=== PATIENT | female | born 2000 | race Asian ===

== ENCOUNTER 2025-03-02 13:24 | Emergency (ER) | payer OTHER ==
[~2025-03-02] VITALS: Ht 162.6 cm; Wt 69.0 kg
[2025-03-02] MEDS ORDERED: CIPOTIC OTIC (13:41)
[2025-03-02] MEDS ORDERED: IBUP-2077 PO (13:41)
--- NOTE | 2025-03-02 13:42 | ERN ---
ED Note History of Present Illness Stated Complaint: BILATERAL EAR PAIN Chief Complaint: Earache Time Seen by MD: 13:29 Dictation: PATIENT IS A 24-YEAR-OLD FEMALE HERE WITH COMPLAINTS OF BILATERAL EAR PAIN, STATES SHE USES Q-TIPS. SHE STATES THE PAIN HAS BEEN FOR ONE WEEK DENIES ANY HEARING LOSS NO FEVER NO CHILLS NO NAUSEA VOMITING. SHE HAS NO MASTOID TENDERNESS IN TRIAGE. NO PRIMARY CARE DOCTOR. Allergies: Coded Allergies: No Known Allergies (Unverified Allergy, Unknown, 03/02/25) Past Medical History Past Medical History: No Pertinent History Surgical History: None History: Not Applicable LMP: Feb 03, 2025 RN Note Reviewed/Agreed w/PFSH: Yes Review of System Dictation CONSTITUTIONAL: NEGATIVE EXCEPT FOR HPI HEAD/FACE: NEGATIVE EXCEPT FOR HPI EENT: NEGATIVE EXCEPT FOR HPI BILATERAL EAR PAIN RESPIRATORY: NEGATIVE EXCEPT FOR HPI GASTROINTESTINAL/ABDOMINAL: NEGATIVE EXCEPT FOR HPI GENITOURINARY: NEGATIVE EXCEPT FOR HPI MUSCULOSKELETAL: NEGATIVE EXCEPT FOR HPI INTEGUMENTARY: NEGATIVE EXCEPT FOR HPI NEUROLOGICAL/PSYCH: NEGATIVE EXCEPT FOR HPI HEMATOLOGIC/LYMPHATIC: NEGATIVE EXCEPT FOR HPI ALL SYSTEMS NEGATIVE, EXCEPT NOTED ABOVE. 13 POINT REVIEW OF SYSTEMS ASSESSED AND ALL NEGATIVE EXCEPT FOR ABOVE. Initial Vital Sign VS Vital Signs Date Time Temp Pulse Resp B/P (MAP) Pulse Ox O2 Delivery O2 Flow Rate FiO2 03/02/25 13:25 97.9 58 16 109/73 100 Room Air 0 Physical Exam Dictation VITAL SIGNS REVIEWED GENERAL APPEARANCE: ALERT, ORIENTED X 3, N MODERATE ACUTE DISTRESS, WELL DEVELOPED, NOURISHED. HEAD AND FACE: NON-TRAUMATIC. EYES: PERRL, PINK CONJUNCTIVAS, EYELID NO TRAUMA, ANTERIOR CHAMBER WITH ARCUS SENILIS. EARS: PINNAS INTACT AND NO SIGNS OF TRAUMA. BILATERAL TMS INTACT. OTIC ERYTHEMA AND SWELLING BILATERALLY GREATER ON THE LEFT. NEGATIVE MASTOID TENDERNESS BILATERALLY NOSE: NO DISCHARGE, NO BLEEDING. OROPHARYNX: MOUTH NORMAL, TONGUE PINK, PHARYNX CLEAR,NO ERYTHEMA, TONSILS NO EXUDATES, NO ABSCESSES NOTED, MUCOUS MEMBRANE MOIST NECK: SUPPLE, NON-TENDER, NO THYROMEGALY, NO MASSES, NO JVD, NO BRUITS BREAST:DEFERRED CHEST:NO TENDERNESS, NO CREPITUS, NO PARADOXICAL MOVEMENT, NO RETRACTIONS LUNGS:CLEAR, WELL-VENTILATED, SYMMETRIC, NO RALES, NO WHEEZING, NO RHONCHI, NO STRIDOR, GOOD BREATH SOUNDS BILATERALLY HEART: REGULAR RATE, REGULAR RHYTHM, NO MURMUR, NO GALLOPS VASCULAR: NO PERIPHERAL EDEMA, ABDOMEN: SOFT, POSITIVE BOWEL SOUNDS, NONDISTENDED, NO GUARDING, NONTENDER, NO REBOUND, NO MASSES NO HEPATOMEGALY, NO SPLENOMEGALY, NO YARBROUGH'S SIGN, NO HERNIAS. RECTAL: DEFERRED GENITAL: DEFERRED NEUROLOGICAL: NORMAL SPEECH, MOTOR FUNCTION INTACT, SENSORY FUNCTION INTACT MUSCULOSKELETAL: NECK NONTENDER, FULL RANGE OF MOTION, BACK NONTENDER, FULL RANGE OF MOTION, EXTREMITIES: NONTENDER, FULL RANGE OF MOTION SKIN: COLOR PINK, DRY, NO TURGOR, NO RASH, NO LACERATIONS, NO ABRASIONS, NO CONTUSIONS. LYMPHATIC: DEFERRED Results (Laboratory/Radiology) Labs Reviewed?: Yes ED Course ED Course Orders Procedure Category Date Status Time Ibuprofen 800 Mg Tab PHA 03/02/25 Logged (Motrin) 14:00 Current Medications Medications (Trade) Dose Ordered Sig/Claribel Route PRN Reason Start Time Stop Time Status Last Admin Dose Admin Ibuprofen (moTRIN) 800 mg ONCE ONCE PO 03/02/25 14:00 03/02/25 14:01 UNV Vital Signs Date Time Temp Pulse Resp B/P (MAP) Pulse Ox O2 Delivery O2 Flow Rate FiO2 03/02/25 13:25 97.9 58 16 109/73 100 Room Air 0 1335/NO LABS OR IMAGING INDICATED. PATIENT WILL BE TREATED EMPIRICALLY FOR OTITIS EXTERNA SHE WILL BE PRESCRIBED IBUPROFEN AND CIPRO HC TOLD USE COTTON BALLS WITH EAR DROPS Medical Decision Making MDM MEDICAL DECISION-MAKING HIS BASED ON EMPIRIC TREATMENT FOR BILATERAL OTITIS EXTERNA. IN ADDITION PATIENT WAS EDUCATED ON STOPPING Q-TIP USE IN HER EARS SHE WILL BE PRESCRIBED IBUPROFEN AND CIPRO HC GIVEN INSTILLATION INSTRUCTIONS AND A LIST OF LOCAL DOCTORS. ALL QUESTIONS ANSWERED DX & DISP Disposition: Discharge Departure Impression: Primary Impression: Diffuse otitis externa, bilateral Condition: Stable Scripts Ibuprofen (Ibuprofen 800 mg Tab) 800 Mg Tab 800 MG PO Q8H PRN for fever or pain, #30 TAB 0 Refills Prov: APRIL SOLER NP 03/02/25 Ciprofloxacin HCl/Hc (Cipro Hc Otic Susp) 0.2 %-1 % Otsus 4 DROP OTIC BID for 7 Days, #10 ML 0 Refills FOUR DROPS EACH EAR TWICE A DAY FOR SEVEN DAYS WITH COTTON. Prov: APRIL SOLER NP 03/02/25 Additional Instructions: FOLLOW-UP WITH PRIMARY CARE PROVIDER IN 1 TO 2 DAYS. TAKE MEDICATIONS DIRECTED HERE IN THE EMERGENCY ROOM. OKAY TO CONTINUE HOME MEDICATIONS UNLESS OTHERWISE DISCUSSED DURING YOUR VISIT IN THE EMERGENCY ROOM TODAY. RETURN TO YOUR NEAREST EMERGENCY ROOM IF SYMPTOMS WORSEN OR IF THERE IS NO IMPROVEMENT. CALL 911 IF YOU NEED IMMEDIATE ASSISTANCE. TAKE TYLENOL OR MOTRIN [id number] NEEDED AND IF NO CONTRAINDICATIONS ARE PRESENT. INCREASE ORAL HYDRATION. A WOUND CULTURE OR URINE CULTURE WAS ORDERED HERE IN THE EMERGENCY ROOM DEPARTMENT PLEASE FOLLOW-UP WITH PRIMARY CARE PROVIDER AND ADVISE THEM TO GET REPEAT PORTS FROM OUR FACILITY. IF YOU HAD ANY LAURA WRAP/SPLINTS THAT WERE APPLIED HERE, PLEASE DO NOT REMOVE THEM UNTIL YOU SEE YOUR PRIMARY CARE OR SPECIALTY. STOP Q-TIPS IN EARS. USE EAR DROPS DIRECTED TWICE A DAY FOR SEVEN DAYS WITH COTTON. TAKE IBUPROFEN NEEDED FOR FEVER PAIN WITH FOOD. SEE YOUR PRIMARY CARE DOCTOR FOR FOLLOW UP Time of Disposition: 13:40 I have reviewed the case, and I agree with, Diagnosis and Plan APRIL SOLER NP Mar 02, 2025 13:42
[2025-03-02 13:52] VITALS: BP 110/72; PULSE 68; RESP 16; TEMP 97.9; O2SAT 100
== END 2025-03-02 13:56 | disposition home or self-care (01) ==
LOC: EDH 13:24
DX: H60.313 Diffuse otitis externa, bilateral (principal)
CPT/HCPCS: 99283

== ENCOUNTER → 2025-04-20 | Outpatient (CLI) | payer OTHER ==
[~2025-04-20] MED LIST: CIPOTIC OTIC; IBUP-2077 PO
--- NOTE | 2025-04-20 16:06 | HMCIMG ---
EXAM: CR left ankle, 3 View. CLINICAL HISTORY: PAIN IN LEFT ANKLE AND JOINTS OF LEFT FOOT COMPARISON: None provided. FINDINGS: BONES: No acute fracture or aggressive appearing osseous lesion. JOINTS: The joint spaces appear within normal limits. No dislocation. No radiographic evidence of a joint effusion. SOFT TISSUES: The soft tissues are unremarkable. IMPRESSION: No acute osseous abnormality. /[place]
== END | disposition home or self-care (01) ==
LOC: RAH 15:32
PROVIDERS: ATTEND Internal Medicine
DX: M25.572 Pain in left ankle and joints of left foot (principal)
CPT/HCPCS: 73610

== ENCOUNTER → 2025-04-21 | Outpatient (CLI) | payer OTHER ==
[2025-04-21 09:27] LABS: IMMATURE GRANULOCYTE ABSOLUTE 0.01 K/uL (0-1); NUCLEATED RED BLOOD CELLS 0.0 % (0.0-0.19); PLATELET COUNT (AUTO) 255 K/uL (130-400); RED BLOOD CELL COUNT(AUTO) 5.03 MIL/uL (4.00-5.50); RED CELL DISTRIBUTION WIDTH 16.9 % (11.0-15.5); WHITE BLOOD COUNT (AUTO) 5.1 K/uL (4.8-10.8)
[2025-04-21 09:51] LABS: ASPARTATE AMINOTRANSFERASE 14.0 U/L (10-37); CREATININE 0.7 mg/dL (0.5-1.0); GLOMERULAR FILTR. RATE CALC 123.0 mL/min (>90); GLUCOSE,RANDOM 90.0 mg/dL (70-105); LDL DIRECT 118.0 mg/dL (0-99); SODIUM SERUM 140.0 mmol/L (136-145); TOTAL PROTEIN, SERUM 7.5 g/dL (6.0-8.3); UREA NITROGEN, BLOOD 8.0 mg/dL (7-18)
== END | disposition home or self-care (01) ==
LOC: LAB 08:50
PROVIDERS: ATTEND Internal Medicine
DX: M25.572 Pain in left ankle and joints of left foot (principal); Z13.1 Encounter for screening for diabetes mellitus; Z13.29 Encounter for screening for other suspected endocrine disorder; Z13.220 Encounter for screening for lipoid disorders
CPT/HCPCS: 36415; 80053; 80061; 83036; 84443; 85025

== ENCOUNTER → 2025-04-24 | Emergency (ER) | payer OTHER ==
[~2025-04-24] VITALS: Ht 162.6 cm; Wt 72.6 kg
[~2025-04-24] MED LIST changes: +ACET-2079 PO; +LEVO-70 PO
--- NOTE | 2025-04-24 13:43 | ERN ---
ED Note History of Present Illness Stated Complaint: EARACHE Chief Complaint: Earache Time Seen by MD: 13:16 Dictation: PATIENT IS A 24-YEAR-OLD FEMALE HERE WITH LEFT EAR PAIN FOR MORE THAN A MONTH. SHE HAS HAD NO FEVER NO CHILLS NO NAUSEA VOMITING THERE WAS NO PAIN BEHIND THE EAR BILATERALLY. SHE WAS SEEN AT THE EMERGENCY ROOM ON THE OF THIS MONTH WAS PRESCRIBED CIPRO HC HOWEVER SHE SAID HER INSURANCE DID NOT ACCEPT THAT AND THEY GAVE HER OFLOXACIN I INSTEAD. SHE SAID THESE DID NOT HELP, SHE THEN WENT TO URGENT CARE AND WAS SEEN AND DIAGNOSED WITH A OTITIS EXTERNA WAS PRESCRIBED AUGMENTIN 875 B.I.D. AND TOLD TO CONTINUE OFLOXACIN. SHE STATES SHE ONLY TOOK THE AUGMENTIN ONE TIME A DAY INSTEAD OF TWICE A DAY. SHE STATES SHE SAW HER PRIMARY CARE DOCTORS [place] TWO DAYS AGO WHO ADVISED HER HE WOULD SEND HER TO AN ENT. HOWEVER SHE HAS BEEN IN THE REFERRAL. STATES HER PAIN IS 8/10. NO HEARING LOSS Allergies: Coded Allergies: No Known Allergies (Unverified Allergy, Unknown, 03/02/25) Home Meds Active Scripts Ibuprofen (Ibuprofen 800 mg Tab) 800 Mg Tab, 800 MG PO Q8H PRN for fever or pa in, #30 TAB 0 Refills Prov:APRIL SOLER DATA OFFICER 03/02/25 Ciprofloxacin HCl/Hc (Cipro Hc Otic Susp) 0.2 %-1 % Otsus, 4 DROP OTIC BID for 7 Days, #10 ML 0 Refills FOUR DROPS EACH EAR TWICE A DAY FOR SEVEN DAYS WITH COTTON. Prov:APRIL SOLER DATA OFFICER 03/02/25 Past Medical History Past Medical History: No Pertinent History Surgical History: None History: Not Applicable RN Note Reviewed/Agreed w/PFSH: Yes Review of System Dictation CONSTITUTIONAL: NEGATIVE EXCEPT FOR HPI HEAD/FACE: NEGATIVE EXCEPT FOR HPI EENT: NEGATIVE EXCEPT FOR HPI LEFT EAR PAIN RESPIRATORY: NEGATIVE EXCEPT FOR HPI GASTROINTESTINAL/ABDOMINAL: NEGATIVE EXCEPT FOR HPI GENITOURINARY: NEGATIVE EXCEPT FOR HPI MUSCULOSKELETAL: NEGATIVE EXCEPT FOR HPI INTEGUMENTARY: NEGATIVE EXCEPT FOR HPI NEUROLOGICAL/PSYCH: NEGATIVE EXCEPT FOR HPI HEMATOLOGIC/LYMPHATIC: NEGATIVE EXCEPT FOR HPI ALL SYSTEMS NEGATIVE, EXCEPT NOTED ABOVE. 13 POINT REVIEW OF SYSTEMS ASSESSED AND ALL NEGATIVE EXCEPT FOR ABOVE. Initial Vital Sign VS Vital Signs Date Time Temp Pulse Resp B/P (MAP) Pulse Ox O2 Delivery O2 Flow Rate FiO2 04/24/25 13:16 97.9 61 20 97/63 100 Room Air 0 Physical Exam Dictation VITAL SIGNS REVIEWED GENERAL APPEARANCE: ALERT, ORIENTED X 3, MODERATE ACUTE DISTRESS, WELL DEVELOPED, NOURISHED. HEAD AND FACE: NON-TRAUMATIC. EYES: PERRL, PINK CONJUNCTIVAS, EYELID NO TRAUMA, ANTERIOR CHAMBER WITH ARCUS SENILIS. EARS: PINNAS INTACT AND NO SIGNS OF TRAUMA UNABLE TO VISUALIZE LEFT TM DUE TO OTIC CANAL SWELLING ERYTHEMA. RIGHT TM INTACT AND CANAL NEGATIVE NEGATIVE MASTOID TENDERNESS BILATERALLY NOSE: NO DISCHARGE, NO BLEEDING. OROPHARYNX: MOUTH NORMAL, TONGUE PINK, PHARYNX CLEAR,NO ERYTHEMA, TONSILS NO EXUDATES, NO ABSCESSES NOTED, MUCOUS MEMBRANE MOIST NECK: SUPPLE, NON-TENDER, NO THYROMEGALY, NO MASSES, NO JVD, NO BRUITS BREAST:DEFERRED CHEST:NO TENDERNESS, NO CREPITUS, NO PARADOXICAL MOVEMENT, NO RETRACTIONS LUNGS:CLEAR, WELL-VENTILATED, SYMMETRIC, NO RALES, NO WHEEZING, NO RHONCHI, NO STRIDOR, GOOD BREATH SOUNDS BILATERALLY HEART: REGULAR RATE, REGULAR RHYTHM, NO MURMUR, NO GALLOPS VASCULAR: NO PERIPHERAL EDEMA, ABDOMEN: SOFT, POSITIVE BOWEL SOUNDS, NONDISTENDED, NO GUARDING, NONTENDER, NO REBOUND, NO MASSES NO HEPATOMEGALY, NO SPLENOMEGALY, NO YARBROUGH'S SIGN, NO HERNIAS. RECTAL: DEFERRED GENITAL: DEFERRED NEUROLOGICAL: NORMAL SPEECH, MOTOR FUNCTION INTACT, SENSORY FUNCTION INTACT MUSCULOSKELETAL: NECK NONTENDER, FULL RANGE OF MOTION, BACK NONTENDER, FULL RANGE OF MOTION, EXTREMITIES: NONTENDER, FULL RANGE OF MOTION SKIN: COLOR PINK, DRY, NO TURGOR, NO RASH, NO LACERATIONS, NO ABRASIONS, NO CONTUSIONS. LYMPHATIC: DEFERRED Results (Laboratory/Radiology) Labs Reviewed?: Yes ED Course ED Course Orders Procedure Category Date Status Time Acetaminophen 500mg PHA 04/24/25 Verified Tab (Tylenol 500mg T 14:00 Ceftriaxone 1g Vial PHA 04/24/25 Verified (Rocephine 1g Inj) 14:00 Levofloxacin 500mg PHA 04/24/25 Verified Tab (Levaquin 500mg T 13:31 Vital Signs Date Time Temp Pulse Resp B/P (MAP) Pulse Ox O2 Delivery O2 Flow Rate FiO2 04/24/25 13:16 97.9 61 20 97/63 100 Room Air 0 1335/NO LABS OR IMAGING INDICATED. PATIENT WILL BE GIVEN LEVAQUIN AND ROCEPHIN TO COVER PSEUDOMONAS. SHE WILL BE GIVEN TYLENOL ONLY FOR PAIN SINCE SHE IS GOING BACK TO WORK. SHE WILL BE STRONGLY ADVISED TO RESUME OFLOXACIN DROPS WITH COTTON. AND USE 3 TIMES A DAY FOR SEVEN DAYS. TAKE LEVAQUIN DIRECTED UNTIL GONE AND TYLENOL WITH CODEINE FOR SEVERE PAIN. KEEP HER APPOINTMENT WITH HER ENT Medical Decision Making MDM MEDICAL DECISION-MAKING BASED ON EMPIRIC TREATMENT FOR OTITIS EXTERNA. PATIENT HAD OUTPATIENT TREATMENT FAILURE PARTIALLY DUE TO AN INCOMPLETE TREATMENT AND FAILURE TO TAKE ANTIBIOTICS DIRECTED. PATIENT WILL BE SWITCHED OVER TO LEVAQUIN 500 MG DAILY FOR SEVEN DAYS GIVEN TYLENOL WITH CODEINE FOR SEVERE PAIN TOLD TO RESUME OFLOXACIN DROPS 3 TIMES A DAY FOR SEVEN DAYS WITH COTTON. KEEP HER APPOINTMENT WITH HER ENT DX & DISP Disposition: Discharge Departure Impression: Primary Impression: Left otitis externa Additional Impression: Failure of outpatient treatment Condition: Stable Scripts Acetaminophen with Codeine (Acetaminophen-Cod #3 Tablet) 300 Mg-30 Mg Tablet 1 TAB PO Q4H PRN for MODERATE TO SEVERE, #15 TAB 0 Refills Prov: APRIL SOLER 04/24/25 Levofloxacin (Levofloxacin) 500 Mg Tablet 1 TAB PO DAILY for 10 Days, #10 TAB 0 Refills Prov: APRIL SOLER 04/24/25 Additional Instructions: Follow-up with primary care provider in 1 to 2 days. Take medications as directed here in the emergency room. Okay to continue home medications unless otherwise discussed during your visit in the emergency room today. Return to your nearest emergency room if symptoms worsen or if there is no improvement. Call 911 if you need immediate assistance. Take Tylenol or Motrin [id number] as needed and if no contraindications are present. Increase oral hydration. A wound culture or urine culture was ordered here in the emergency room department please follow-up with primary care provider and advise them to get repeat ports from our facility. If you had any Armani wrap/splints that were applied here, please do not remove them until you see your primary care or specialty. Continue ofloxacin drops 3 times a day for seven days with cotton balls. Take Levaquin as directed starting tomorrow until gone. Continue Tylenol with codeine for severe pain at night Take Tylenol or Advil [id number] as needed for pain during the day. Keep your appointment with your eye your nose and throat specialist Referrals: LAI LAYTON MD (PCP) Time of Disposition: 13:40 I have reviewed the case, and I agree with, Diagnosis and Plan APRIL SOLER DATA OFFICER Apr 24, 2025 13:43
[2025-04-24 14:09] VITALS: BP 97/63; PULSE 61; RESP 20; TEMP 97.9; O2SAT 100
== END ==
LOC: EDH 13:14
DX: H60.92 Unspecified otitis externa, left ear (principal)
CPT/HCPCS: 99283; 96372; J0696

== ENCOUNTER 2025-05-04 14:55 | Emergency (ER) | payer OTHER ==
[~2025-05-04] VITALS: Ht 152.4 cm; Wt 59.0 kg
[2025-05-04] MEDS ORDERED: IBUP-1492 PO (15:08)
--- NOTE | 2025-05-04 15:09 | ERN ---
ED Note History of Present Illness Stated Complaint: BILATERAL EAR PAIN Chief Complaint: Earache Time Seen by MD: 15:00 Dictation: PATIENT IS A 24-YEAR-OLD FEMALE COMING IN TODAY WHO IS WELL KNOWN TO [facility] [place] WITH COMPLAINTS OF BILATERAL EAR PAIN FOR MORE THAN ONE MONTH. NO FEVER NO CHILLS NO HEARING LOSS. SHE HAS ALREADY BEEN SEEN BY HER PRIMARY CARE DOCTOR, DR. LAI LAYTON WAS GOING TO BE REFERRED TO ENT. PATIENT STATES THIS NEVER HAPPENED BECAUSE HER INSURANCE WHEN HE COVERED. SHE THEN WAS SEEN [place] [facility] [place], WAS TREATED FOR BILATERAL OTITIS EXTERNA. SHE IS AFEBRILE. STATES HER PAIN IS MILD BUT IT IS STILL THERE. Allergies: Coded Allergies: No Known Allergies (Unverified Allergy, Unknown, 03/02/25) Home Meds Active Scripts Acetaminophen with Codeine (Acetaminophen-Cod #3 Tablet) 300 Mg-30 Mg Tablet, 1 TAB PO Q4H PRN for MODERATE TO SEVERE, #15 TAB 0 Refills Prov:APRIL SOLERP 04/24/25 Levofloxacin (Levofloxacin) 500 Mg Tablet, 1 TAB PO DAILY for 10 Days, #10 TAB 0 Refills Prov:APRIL SOLERP 04/24/25 Ibuprofen (Ibuprofen 800 mg Tab) 800 Mg Tab, 800 MG PO Q8H PRN for fever or pain, #30 TAB 0 Refills Prov:APRIL SOLERP 03/02/25 Ciprofloxacin HCl/Hc (Cipro Hc Otic Susp) 0.2 %-1 % Otsus, 4 DROP OTIC BID for 7 Days, #10 ML 0 Refills FOUR DROPS EACH EAR TWICE A DAY FOR SEVEN DAYS WITH COTTON. Prov:APRIL SOLERP 03/02/25 Past Medical History Past Medical History: No Pertinent History Surgical History: None History: Not Applicable LMP: Apr 09, 2025 RN Note Reviewed/Agreed w/PFSH: Yes Review of System Dictation CONSTITUTIONAL: NEGATIVE EXCEPT FOR HPI HEAD/FACE: NEGATIVE EXCEPT FOR HPI EENT: NEGATIVE EXCEPT FOR HPI BILATERAL EAR PAIN, CHRONIC RESPIRATORY: NEGATIVE EXCEPT FOR HPI GASTROINTESTINAL/ABDOMINAL: NEGATIVE EXCEPT FOR HPI GENITOURINARY: NEGATIVE EXCEPT FOR HPI MUSCULOSKELETAL: NEGATIVE EXCEPT FOR HPI INTEGUMENTARY: NEGATIVE EXCEPT FOR HPI NEUROLOGICAL/PSYCH: NEGATIVE EXCEPT FOR HPI HEMATOLOGIC/LYMPHATIC: NEGATIVE EXCEPT FOR HPI ALL SYSTEMS NEGATIVE, EXCEPT NOTED ABOVE. 13 POINT REVIEW OF SYSTEMS ASSESSED AND ALL NEGATIVE EXCEPT FOR ABOVE. Initial Vital Sign VS Vital Signs Date Time Temp Pulse Resp B/P (MAP) Pulse Ox O2 Delivery O2 Flow Rate FiO2 05/04/25 14:57 97.9 67 16 96/66 100 Room Air 0 Physical Exam Dictation VITAL SIGNS REVIEWED GENERAL APPEARANCE: ALERT, ORIENTED X 3, MILD ACUTE DISTRESS, WELL DEVELOPED, NOURISHED. HEAD AND FACE: NON-TRAUMATIC. EYES: PERRL, PINK CONJUNCTIVAS, EYELID NO TRAUMA, ANTERIOR CHAMBER WITH ARCUS SENILIS. EARS: PINNAS INTACT AND NO SIGNS OF TRAUMA BILATERAL TYMPANIC MEMBRANES ARE INTACT. NO INJECTION NO BULGING. OTIC CANAL ERYTHEMA SWELLING TO LEFT EAR. NOSE: NO DISCHARGE, NO BLEEDING. OROPHARYNX: MOUTH NORMAL, TONGUE PINK, PHARYNX CLEAR,NO ERYTHEMA, TONSILS NO EXUDATES, NO ABSCESSES NOTED, MUCOUS MEMBRANE MOIST NECK: SUPPLE, NON-TENDER, NO THYROMEGALY, NO MASSES, NO JVD, NO BRUITS BREAST:DEFERRED CHEST:NO TENDERNESS, NO CREPITUS, NO PARADOXICAL MOVEMENT, NO RETRACTIONS LUNGS:CLEAR, WELL-VENTILATED, SYMMETRIC, NO RALES, NO WHEEZING, NO RHONCHI, NO STRIDOR, GOOD BREATH SOUNDS BILATERALLY HEART: REGULAR RATE, REGULAR RHYTHM, NO MURMUR, NO GALLOPS VASCULAR: NO PERIPHERAL EDEMA, ABDOMEN: SOFT, POSITIVE BOWEL SOUNDS, NONDISTENDED, NO GUARDING, NONTENDER, NO REBOUND, NO MASSES NO HEPATOMEGALY, NO SPLENOMEGALY, NO YARBROUGH'S SIGN, NO HERNIAS. RECTAL: DEFERRED GENITAL: DEFERRED NEUROLOGICAL: NORMAL SPEECH, MOTOR FUNCTION INTACT, SENSORY FUNCTION INTACT MUSCULOSKELETAL: NECK NONTENDER, FULL RANGE OF MOTION, BACK NONTENDER, FULL RANGE OF MOTION, EXTREMITIES: NONTENDER, FULL RANGE OF MOTION SKIN: COLOR PINK, DRY, NO TURGOR, NO RASH, NO LACERATIONS, NO ABRASIONS, NO CONTUSIONS. LYMPHATIC: DEFERRED Results (Laboratory/Radiology) Labs Reviewed?: Yes ED Course ED Course Orders Procedure Category Date Status Time Acetaminophen 500mg PHA 05/04/25 Verified Tab (Tylenol 500mg T 15:30 Dexamethasone 4mg/Ml PHA 05/04/25 Verified 1ml Vial (Dexametha 15:30 Vital Signs Date Time Temp Pulse Resp B/P (MAP) Pulse Ox O2 Delivery O2 Flow Rate FiO2 11/10/25 14:57 97.9 67 16 96/66 100 Room Air 0 1510/NO LABS OR IMAGING INDICATED. PATIENT WILL BE GIVEN DECADRON AND TYLENOL FOR PAIN. SHE WILL BE DISCHARGED HOME ON CIPRO HC DROPS AND TOLD THAT WE WILL BE NO AGUILAR BSTITUTE. SINCE SHE HAS ALREADY TRIED OFLOXACIN AND THERE WAS OUTPATIENT FAILURE. PATIENT WAS STRONGLY ADVISED TO GO BACK TO HER PRIMARY CARE DOCTOR FOR ENT REFERRAL AND TO NEGOTIATE WITH THE ENT WANTS SHE HAD THE APPOINTMENT. Medical Decision Making MDM MEDICAL DISCHARGE MAKING BASED ON PHYSICAL EXAMINATION AND HPI WITH THE REVIEW OF RECORD. PATIENT HAS A CHRONIC OTITIS EXTERNA GREATER ON THE LEFT. NO HEARING LOSS NO FEVER SHE WILL BE GIVEN HYDROCORTISONE HC TOLD SEE HER DOCTOR FOR ENT REFERRAL DX & DISP Disposition: Discharge Departure Impression: Primary Impression: Left otitis externa Additional Impression: Failure of outpatient treatment Condition: Stable Scripts Ibuprofen (Ibuprofen) 600 Mg Tablet 600 MG PO Q6H PRN for PAIN, #30 TAB Prov: APRIL SOLERP 05/04/25 Ciprofloxacin HCl/Hc (Cipro Hc Otic Susp) 0.2 %-1 % Otsus 3 DROP OTIC BID for 7 Days, #10 ML 0 Refills THREE DROPS LEFT EAR WITH COTTON 3 TIMES A DAY FOR SEVEN DAYS. Prov: APRIL SOLER SURGICAL ELASTIC KNITTER HAND FRAME 05/04/25 Additional Instructions: FOLLOW-UP WITH PRIMARY CARE PROVIDER IN 1 TO 2 DAYS. TAKE MEDICATIONS DIRECTED HERE IN THE EMERGENCY ROOM. OKAY TO CONTINUE HOME MEDICATIONS UNLESS OTHERWISE DISCUSSED DURING YOUR VISIT IN THE EMERGENCY ROOM TODAY. RETURN TO YOUR NEAREST EMERGENCY ROOM IF SYMPTOMS WORSEN OR IF THERE IS NO IMPROVEMENT. CALL 911 IF YOU NEED IMMEDIATE ASSISTANCE. TAKE TYLENOL OR MOTRIN [id number] NEEDED AND IF NO CONTRAINDICATIONS ARE PRESENT. INCREASE ORAL HYDRATION. A WOUND CULTURE OR URINE CULTURE WAS ORDERED HERE IN THE EMERGENCY ROOM DEPARTMENT PLEASE FOLLOW-UP WITH PRIMARY CARE PROVIDER AND ADVISE THEM TO GET REPEAT PORTS FROM OUR FACILITY. IF YOU HAD ANY LAURA WRAP/SPLINTS THAT WERE APPLIED HERE, PLEASE DO NOT REMOVE THEM UNTIL YOU SEE YOUR PRIMARY CARE OR SPECIALTY. USE CIPRO HC DROPS WITH COTTON DIRECTED FOR THE NEXT SEVEN DAYS. TAKE IBUPROFEN NEEDED FOR PAIN WITH FOOD. STRONGLY SUGGEST FOLLOWING WITH THE YOUR PRIMARY CARE DOCTOR FOR ENT REFERRAL AND MANAGEMENT Referrals: LAI LAYTON MD (PCP) Time of Disposition: 15:07 I have reviewed the case, and I agree with, Diagnosis and Plan APRIL SOLER [facility] May 04, 2025 15:09
[2025-05-04 16:21] VITALS: BP 131/65; PULSE 69; RESP 20; TEMP 98.1; O2SAT 97
== END 2025-05-04 16:24 | disposition home or self-care (01) ==
LOC: EDH 14:55
DX: H60.92 Unspecified otitis externa, left ear (principal); Z79.899 Other long term (current) drug therapy
CPT/HCPCS: 99283; 96372; J1100